=== PATIENT | male | born 1985 | race Caucasian/White ===

== ENCOUNTER 2016-11-15 19:29 | Emergency (ER) | payer OTHER ==
[~2016-11-15] VITALS: Ht 172.7 cm; Wt 78.0 kg
[2016-11-15] MEDS ORDERED: LIDOCAINE HCL BUFFERED 1% 20 ML VIAL INJ ONE (20:00)
[2016-11-15] MEDS ORDERED: POVIDONE-IODINE 10% 15 ML SOLUTION UD TP ONE (20:00)
[2016-11-15] MEDS ORDERED: BACITRACIN 0.9 GM PACKET OINTMENT TP ONE (20:00)
[2016-11-15 20:06] VITALS: BP 125/79
== END 2016-11-15 20:18 | disposition home or self-care (01) ==
LOC: EMS 19:33
DX: S01.81XA Laceration without foreign body of other part of head, initial encounter (principal); S09.90XA Unspecified injury of head, initial encounter; F17.210 Nicotine dependence, cigarettes, uncomplicated; F12.90 Cannabis use, unspecified, uncomplicated; Z71.6 Tobacco abuse counseling
CPT/HCPCS: 12013; 99283; 99406; J3490

== ENCOUNTER 2016-11-23 19:45 | Emergency (ER) | payer OTHER ==
[~2016-11-23] VITALS: Ht 170.2 cm; Wt 70.5 kg
[2016-11-23 20:29] VITALS: BP 118/81
== END 2016-11-23 20:59 | disposition home or self-care (01) ==
LOC: EMS 19:46
DX: Z48.02 Encounter for removal of sutures (principal); F12.90 Cannabis use, unspecified, uncomplicated; F17.210 Nicotine dependence, cigarettes, uncomplicated
CPT/HCPCS: 99281